=== PATIENT | male | born 1955 | race Caucasian/White ===

== ENCOUNTER 2020-05-27 11:44 | Day surgery (SDC) | payer MEDICARE, OTHER ==
[~2020-05-27] VITALS: Ht 180.3 cm; Wt 124.7 kg
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
--- NOTE | 2020-05-27 13:27 | NUR ---
05/27/20 1327 Eloise Chaves 1314 PT ARRIVED IN PACU SLEEPY WITH NO C/O'S. 1325 SITTING UP IN BED SIPPING ON JUICE. AT BEDSIDE.
--- NOTE | 2020-05-28 17:51 | PATH ---
[facility] [address] [place], [place] [address] Signed SPECIMEN(S): A DUODENAL BIOPSY SPECIMEN(S): B DUODENAL BIOPSY SPECIMEN(S): C ANTRUM/PYLORUS SPECIMEN(S): D PROXIMAL STOMACH SPECIMEN(S): E DISTAL ESOPHAGUS SPECIMEN(S): F MID ESOPHAGUS SPECIMEN SOURCE: A. DUODENAL BIOPSY B. DUODENAL BIOPSY C. ANTRUM/PYLORUS D. PROXIMAL STOMACH E. DISTAL ESOPHAGUS F. MID ESOPHAGUS CLINICAL HISTORY: Abdominal pain. Post-op: Hiatal hernia, mild gastritis. EGD. MICROSCOPIC DESCRIPTION: Histologic sections of all submitted blocks are examined by light microscopy. These findings, together with the gross examination, support the pathologic diagnosis. FINAL PATHOLOGIC DIAGNOSIS: A. Duodenum, biopsy: - Duodenal mucosa with no histopathologic abnormality. - Negative for increased intraepithelial lymphocytes. - Negative for dysplasia or malignancy. B. Duodenum, bulb, biopsy: - Duodenal mucosa with focal gastric surface cell metaplasia. - Negative for Helicobacter organisms on HE stain. - Negative for dysplasia or malignancy. C. Stomach, antrum/pylorus, biopsy: - Antral mucosa with focal mild chronic, inactive gastritis. - Negative for Helicobacter organisms on HE stain. - Negative for dysplasia or malignancy. D. Stomach, proximal, biopsy: - Oxyntic mucosa with no histopathologic abnormality. - Negative for Helicobacter organisms on HE stain. - Negative for dysplasia or malignancy. E. Esophagus, distal, biopsy: PATIENT NAME: ABHISHEK PINTO PATHOLOGY DATE OF : 59 REPORT #: [id number] PHYSICIAN: LUIZ HERNANDEZ PCP: LUKAS YUNG MD REPORT IS CONFIDENTIAL AND NOT TO BE RELEASED WITHOUT AUTHORIZATION [facility] [address] [place], [place] [address] Signed - Squamous mucosa with chronic inflammation and reactive epithelial changes, consistent with reflux esophagitis. - Fragment of oxyntic type glandular mucosa with no histopathologic abnormality. - Negative for intestinal metaplasia, dysplasia, or malignancy. F. Esophagus, mid, biopsy: - Squamous mucosa with no histopathologic abnormality. - Negative for increased intraepithelial eosinophils. - Negative for intestinal metaplasia, dysplasia, or malignancy. NAL:cml:C2NR GROSS DESCRIPTION: Six specimens are received in six containers, labeled "RT." A. The specimen, labeled "RT, duodenum biopsy," is received in formalin and consists of one khan soft tissue fragment that measures 0.3 cm in greatest dimension. The specimen is entirely submitted in cassette (A1). B. The specimen, labeled "RT, duodenum biopsy," is received in formalin and consists of two khan soft tissue fragments that measure 0.1-0.2 cm in greatest dimension. The specimen is entirely submitted in cassette (B1). C. The specimen, labeled "RT, antrum biopsy," is received in formalin and consists of one khan soft tissue fragment that measures 0.2 cm in greatest dimension. The specimen is entirely submitted in cassette (C1). D. The specimen, labeled "RT, proximal stomach biopsy," is received in formalin and consists of two hkan soft tissue fragments that measure 0.2-0.3 cm in greatest dimension. The specimen is entirely submitted in cassette (D1). E. The specimen, labeled "RT, distal esophagus biopsy," is received in formalin and consists of one khan soft tissue fragment that measures 0.3 cm in greatest dimension. The specimen is entirely submitted in cassette (E1). F. The specimen, labeled "RT, mid esophagus biopsy," is received in formalin and consists of one khan soft tissue fragment that measures 0.3 cm in greatest dimension. The specimen is entirely submitted in cassette (F1). JS (under the direct supervision of a pathologist) The Gross Description was prepared using a voice recognition system. The report was reviewed for accuracy; however, sound-alike word errors, addition and/or PATIENT NAME: ABHISHEK PINTO PATHOLOGY DATE OF : 59 REPORT #: [id number] PHYSICIAN: LUIZ PATHOLOGY PCP: LUKAS YUNG MD REPORT IS CONFIDENTIAL AND NOT TO BE RELEASED WITHOUT AUTHORIZATION [facility] [address] [place], [place] [address] Signed deletions may occur. If there is any question about this report, please contact Client Services. PERFORMING LABORATORY: The technical component was performed by [facility], [address] [place] [id number] (Moisture Tester: Maria Esther Mayo MD; CLIA# [id number]). Professional interpretation was performed by [facility], [address] [address] (CLIA# [id number]). Diagnostician: Leslye Solis MD Pathologist Electronically Signed 05/28/2020 Copies: ~ PATIENT NAME: ABHISHEK PINTO PATHOLOGY DATE OF : 59 REPORT #: [id number] PHYSICIAN: LUIZ HERNANDEZ PCP: LUKAS YUNG MD REPORT IS CONFIDENTIAL AND NOT TO BE RELEASED WITHOUT AUTHORIZATION
== END 2020-05-27 13:50 | disposition home or self-care (01) ==
LOC: OPS 11:44 → DS 11:45 → OPS 13:00 → DS 13:00 → OPS 13:50
PROVIDERS: ATTEND Surgery
PROC: 0DB78ZX Excision of Stomach, Pylorus, Via Natural or Artificial Opening Endoscopic, Diagnostic (ICD-10-PCS; 2020-05-27)
PROC: 0DB28ZX Excision of Middle Esophagus, Via Natural or Artificial Opening Endoscopic, Diagnostic (ICD-10-PCS; 2020-05-27)
PROC: 0DB38ZX Excision of Lower Esophagus, Via Natural or Artificial Opening Endoscopic, Diagnostic (ICD-10-PCS; 2020-05-27)
PROC: 0DB98ZX Excision of Duodenum, Via Natural or Artificial Opening Endoscopic, Diagnostic (ICD-10-PCS; principal; 2020-05-27 13:00)
DX: K29.50 Unspecified chronic gastritis without bleeding (principal); K20.90 Esophagitis, unspecified without bleeding; K44.9 Diaphragmatic hernia without obstruction or gangrene; I10 Essential (primary) hypertension; K76.9 Liver disease, unspecified; K21.9 Gastro-esophageal reflux disease without esophagitis; E66.01 Morbid (severe) obesity due to excess calories; Z68.38 Body mass index [BMI] 38.0-38.9, adult
CPT/HCPCS: 99153; G0500; J2250; J3010; J7121

== ENCOUNTER 2020-06-28 08:11 | Emergency (ER) | payer MEDICARE, OTHER ==
[~2020-06-28] VITALS: Ht 182.9 cm; Wt 122.5 kg
== END 2020-06-28 10:18 | disposition home or self-care (01) ==
LOC: ED 08:11
DX: S93.401A Sprain of unspecified ligament of right ankle, initial encounter (principal); S43.401A Unspecified sprain of right shoulder joint, initial encounter; X50.1XXA Overexertion from prolonged static or awkward postures, initial encounter; Z88.8 Allergy status to other drugs, medicaments and biological substances
CPT/HCPCS: 73030; 73610; 99283-25

== ENCOUNTER 2024-05-16 11:35 | Day surgery (SDC) | payer MEDICARE, OTHER ==
[~2024-05-16] VITALS: Ht 175.3 cm; Wt 113.6 kg
[~2024-05-16 11:35] MED LIST: IBLOOD GLUCOSE TEST STRIP 1 EA TEST VI PRN; LACTATED RINGER'S 1,000 ML IV SCH; LIDOCAINE HCL 1% 5 ML SDV INJ ONE; LIPITOR20 MG GT; MIDAZOLAM HCL 5 MG/5 ML VIAL IV PRN; MULTIVITAMIN1 EACH PO; fentaNYL citrate 100 MCG/2 ML VIAL IV PRN
[2024-05-16 12:14] VITALS: BP 124/77
[2024-05-16] MEDS ORDERED: MIDAZOLAM HCL 5 MG/5 ML VIAL ONE (13:50)
[2024-05-16] MEDS ORDERED: fentaNYL citrate 100 MCG/2 ML VIAL ONE (13:50)
--- NOTE | 2024-05-16 14:48 | NUR ---
05/16/24 1448 Eloise Chaves 1441 PT ARRIVED IN PACU SLEEPY. ABD SOFT AND PASSING FLATUS.
[2024-05-16 15:20] VITALS: BP 127/83
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
--- NOTE | 2024-05-18 14:12 | PATH ---
[facility] [address] [place] [place] [address] Signed SPECIMEN(S): A CECUM COLON POLYPS SPECIMEN(S): B CEUM COLON POLYP SPECIMEN SOURCE: A. CECUM COLON POLYPS B. CEUM COLON POLYP CLINICAL HISTORY: History of polyps. Post-suspicious polypoid lesion of cecum/polyp x 2 FINAL PATHOLOGIC DIAGNOSIS: A. Cecum, polypectomies: - Tubular adenomas (multiple fragments) B. Cecum, polypectomy: - Tubulovillous adenoma BRP MICROSCOPIC EXAMINATION: Histologic sections of all submitted blocks are examined by light microscopy. These findings, together with the gross examination, support the pathologic diagnosis. GROSS DESCRIPTION: A. The specimen, labeled and designated "Cooper, R, cecum colon polyps," is received in formalin and consists of three khan soft tissue fragments, ranging from 0.3-0.5 cm. Entirely submitted in (A1). B. The specimen, labeled and designated "Cooper, R, cecum colon polyp," is received in formalin and consists of four khan soft tissue fragments, ranging from 0.2-1.3 cm. The largest polyp is inked blue and sectioned.Entirely submitted in (B1). AB (under the direct supervision of a pathologist) The Gross Description was prepared using a voice recognition system. The report was reviewed for accuracy; however, sound-alike word errors, addition and/or deletions may occur. If there is any question about this report, please contact Client Services. ADDITIONAL NOTES: Immunohistochemical and/or in situ hybridization studies if performed in this case included appropriate positive controls that reacted as expected. This test was developed and its performance characteristics determined by [facility]. It has not been cleared or PATIENT NAME: ABHISHEK PINTO PATHOLOGY DATE OF : 59 REPORT #: [id number] PHYSICIAN: LUIZ HERNANDEZ PCP: LUKAS YUNG MD REPORT IS CONFIDENTIAL AND NOT TO BE RELEASED WITHOUT AUTHORIZATION [address] [place], [place] [address] Signed approved by the U.S. Food and Drug Administration. The FDA has determined that such clearance or approval is not necessary. This test is used for clinical purposes. It should not be regarded as investigational or for research. [facility] is certified under the Clinical Laboratory Improvement Amendments of 1988 (CLIA) as qualified to perform high complexity clinical laboratory testing. PERFORMING LABORATORY: Technical component was performed by [facility], [address] [place] [address] (CLIA# [id number]). Professional interpretation was performed by [facility], [address] [place] [address] (CLIA#: [id number]). Diagnostician: Ronnie Londono MD Pathologist Electronically Signed 05/18/2024 Copies: ~ PATIENT NAME: ABHISHEK PINTO PATHOLOGY DATE OF : 59 REPORT #: [id number] PHYSICIAN: [facility] PCP: LUKAS YUNG MD REPORT IS CONFIDENTIAL AND NOT TO BE RELEASED WITHOUT AUTHORIZATION
--- NOTE | 2024-05-21 07:47 | OR ---
[facility] [address] [place], [place] [address] Signed DATE OF OPERATION: 05/16/2024 SURGEON: William Angulo MD PREOPERATIVE DIAGNOSIS: History of suspicious cecal polypoid lesion October 14, 2023 (partial resection, final pathology tubular adenoma). POSTOPERATIVE DIAGNOSES: 1. Residual polypoid lesion behind the ileocecal valve with continued high suspicion for malignant neoplasia. 2. Polyps of cecum x2. PROCEDURES: 1. Total colonoscopy to cecum with cold snare polypectomy x2 and cold morcellation biopsy of cecal polypoid lesion. 2. Hot snare partial resection of polypoid lesion. ANESTHESIA: Intravenous sedation fentanyl 150 mcg and Versed 10 mg. INDICATION: This 68-year-old white man is a patient of Dr. Naida Villa and underwent colonoscopy by me on October 14, 2023, found to have a cecal lesion which was highly suspicious for malignancy. Multiple biopsies undertaken confirmed only tubular adenoma. As this was discordant to its appearance, I have recommended a repeat colonoscopy. He currently has no bleeding, diarrhea or constipation. He understands the risk of colonoscopy including but not limited to bleeding, infection, and perforation. FINDINGS: The prep was excellent. Complete colonoscopy was undertaken of cecum. There were two separate polypoid lesions of the cecum. Both were excised with cold snare technique. The lesion of concern from before remained rather broad-based and polypoid and behind the ileocecal valve. Several biopsies with cold morcellation technique were undertaken of the lesion and subsequently a partial resection with a hot snare polypectomy technique undertaken. The lesion was certainly easily made to bleed and was very dense and firm in passing the wire through it and therefore still in my opinion has a relatively high chance of actual malignancy. Incomplete resection was accomplished today on the basis of those technical findings. Electronically Signed By: WILLIAM ANGULO MD 05/21/24 0747 PATIENT NAME: ABHISHEK PINTO OPERATIVE REPORT DATE OF : 59 REPORT #: [id number] PHYSICIAN: WILLIAM ANGULO MD PCP: NAIDA VILLA MD REPORT IS CONFIDENTIAL AND NOT TO BE RELEASED WITHOUT AUTHORIZATION [facility] [address] [place], [place] [address] Signed DESCRIPTION OF PROCEDURE: The patient was brought to endoscopy suite and placed in lateral decubitus position, left side down and given intravenous sedation to the point of slurred speech and nystagmus with full cardiopulmonary monitoring. An Olympus video colonoscope was passed in the rectum and manipulated throughout the colon noting some diverticula of the sigmoid. The scope was ultimately advanced to the cecum in the area of prior attempted mucosal lift with a spot endoscopic tattoo was noted without associated neoplasm. There were two separate relatively small 5 mm somewhat flat multilobulated polypoid lesions, both were excised with cold snare technique. Behind the ileocecal valve was a more broadly based full and clearly adenomatoid appearing lesion. This was certainly not pedunculated and certainly was consistent with the suspicious lesion previously noted in October. Several biopsies were taken with cold morcellation technique so as to provide a reasonable assessment of its malignant potential. Using a hot snare polypectomy technique, a portion of the mass was excised at least 1 to 2 cm in size. A hot snare technique was used for this. Biopsy site was somewhat bloody. Quite notably upon drying the wire through the lesion it seemed rather firm and with a much higher possibility of malignancy then might otherwise. That portion of tissue was gathered with a Muro-Net and the scope withdrawn and offloaded. The scope was reintroduced and passed to the cecum without problem showing no sign of untoward bleeding at that site and residual polypoid tissue behind the ileocecal valve. He was taken to recovery room in good condition having suffered no complication. CONCLUDING DIAGNOSIS: Strong suspicion for the polypoid lesion of cecum to be malignant or at minimum dysplastic. It is unlikely in my opinion that this will be safely resected by endoscopic technique. He may require limited cecectomy. If the excised specimen proves to be benign adenomatous tissue or with malignant of course a more full right colectomy. We will await those results before making a recommendation to him. He will return to see me in the office in approximately 2 to 3 weeks. MD FAITH Salazar/ROSEL /[id number] Electronically Signed By: WILLIAM ANGULO MD 05/21/24 0747 PATIENT NAME: ABHISHEK PINTO OPERATIVE REPORT DATE OF : 59 REPORT #: [id number] PHYSICIAN: WILLIAM ANGULO MD PCP: NAIDA VILLA MD REPORT IS CONFIDENTIAL AND NOT TO BE RELEASED WITHOUT AUTHORIZATION [address] [address] Signed cc: Naida Villa MD Copies: ~ Electronically Signed By: WILLIAM ANGULO MD 05/21/24 0747 PATIENT NAME: ABHISHEK PINTO OPERATIVE REPORT DATE OF : 59 REPORT #: [id number] PHYSICIAN: WILLIAM ANGULO MD PCP: NAIDA VILLA MD REPORT IS CONFIDENTIAL AND NOT TO BE RELEASED WITHOUT AUTHORIZATION
== END 2024-05-16 15:30 | disposition home or self-care (01) ==
LOC: DS 11:35 → OPS 11:35
PROVIDERS: ATTEND Surgery
PROC: 0DBC8ZX Excision of Ileocecal Valve, Via Natural or Artificial Opening Endoscopic, Diagnostic (ICD-10-PCS; 2024-05-16)
PROC: 0DBH8ZX Excision of Cecum, Via Natural or Artificial Opening Endoscopic, Diagnostic (ICD-10-PCS; principal; 2024-05-16 13:45)
DX: D12.0 Benign neoplasm of cecum (principal); E66.01 Morbid (severe) obesity due to excess calories; Z68.34 Body mass index [BMI] 34.0-34.9, adult; Z86.39 Personal history of other endocrine, nutritional and metabolic disease; Z86.79 Personal history of other diseases of the circulatory system; Z79.899 Other long term (current) drug therapy; Z88.8 Allergy status to other drugs, medicaments and biological substances
CPT/HCPCS: 88305; 99153; G0500; J2250; J3010; J7121

== ENCOUNTER 2024-06-09 10:55 | Inpatient (IN) | payer MEDICARE, OTHER ==
[~2024-06-09] VITALS: Ht 182.9 cm; Wt 113.6 kg
[~2024-06-09 10:55] MED LIST changes: -IBLOOD GLUCOSE TEST STRIP 1 EA TEST VI PRN; -LACTATED RINGER'S 1,000 ML IV SCH; -LIDOCAINE HCL 1% 5 ML SDV INJ ONE; -MIDAZOLAM HCL 5 MG/5 ML VIAL IV PRN; -fentaNYL citrate 100 MCG/2 ML VIAL IV PRN
[2024-06-12] MEDS ORDERED: OSTERA TABLET1 EACH PO (15:25)
[2024-06-12] MEDS ORDERED: VIT C-ECHINACE1 EACH PO (15:25)
[2024-06-12 15:32] VITALS: BP 132/88
[2024-06-26] MEDS ORDERED: ATORVASTATIN CA20 MG PO (10:18)
[2024-06-26] MEDS ORDERED: AMOX TR-K CLV1 EAC1 PO (11:43)
[2024-06-29] MEDS ORDERED: LACTATED RINGER'S 1,000 ML IV SCH (05:00)
[2024-06-29] MEDS ORDERED: HEParin SOD (PORCINE) 5,000 UNIT/ML SDV SUB-Q SCH (07:00)
[2024-06-29] MEDS ORDERED: CEFAZOLIN SODIUM 2 GM/20 ML SYR IV SCH (07:00)
[2024-06-29] MEDS ORDERED: metroNIDAZOLE/SODIUM CHLORIDE 500 MG/100 ML PIGGYBACK IV SCH (07:00)
[2024-06-29] MEDS ORDERED: LIDOCAINE HCL 1% 5 ML SDV INJ ONE (07:00)
[2024-06-29] MEDS ORDERED: IBLOOD GLUCOSE TEST STRIP 1 EA TEST VI PRN (07:00)
[2024-08-18] VITALS (9 sets, daily range): BP systolic 100–153; BP diastolic 60–89
[2024-08-18] MEDS ORDERED: LACTATED RINGER'S 1,000 ML IV SCH ×2 (05:00→13:15)
[2024-08-18] MEDS ORDERED: LAXATIVE5 M1 PO (06:46)
[2024-08-18] MEDS ORDERED: MIRALAX17 GM PO (06:47)
[2024-08-18] MEDS ORDERED: IBLOOD GLUCOSE TEST STRIP 1 EA TEST VI PRN (07:00)
[2024-08-18] MEDS ORDERED: CEFAZOLIN SODIUM 2 GM/20 ML SYR IV SCH (07:00)
[2024-08-18] MEDS ORDERED: HEParin SOD (PORCINE) 5,000 UNIT/ML SDV SUB-Q SCH (07:00)
[2024-08-18] MEDS ORDERED: LIDOCAINE HCL 1% 5 ML SDV INJ ONE (07:00)
[2024-08-18] MEDS ORDERED: metroNIDAZOLE/SODIUM CHLORIDE 500 MG/100 ML PIGGYBACK IV SCH ×2 (07:00→14:00)
[2024-08-18] MEDS ORDERED: KETOROLAC TROMETHAMINE 30 MG/ML VIAL ONE (08:05)
[2024-08-18] MEDS ORDERED: DEXAMETHASONE SOD PHOS 4 MG/ML VIAL ONE ×2 (08:05→12:26)
[2024-08-18] MEDS ORDERED: ROCURONIUM BROMIDE 50 MG/5 ML SYR ONE ×3 (08:05→12:09)
[2024-08-18] MEDS ORDERED: propofoL 200 MG/20 ML VIAL ONE (08:05)
[2024-08-18] MEDS ORDERED: dexmedeTOMIDine HCl 200 MCG/2 ML VIAL ONE (08:05)
[2024-08-18] MEDS ORDERED: ondansetron HCL 4 MG/2 ML VIAL ONE (08:05)
[2024-08-18] MEDS ORDERED: LIDOCAINE HCL 2% 5 ML SDV ONE (08:14)
[2024-08-18] MEDS ORDERED: MAGNESIUM SULFATE 1 GM/2 ML VIAL ONE (08:19)
[2024-08-18] MEDS ORDERED: KETAMINE in NS 50 MG/5 ML SYR ONE (09:45)
[2024-08-18] MEDS ORDERED: GLYCOPYRROLATE 1 MG/5 ML MDV ONE (09:45)
[2024-08-18] MEDS ORDERED: ePHEDrine sulfate 50 MG/ML AMP ONE (09:56)
[2024-08-18] MEDS ORDERED: ACETAMINOPHEN 1,000 MG/100 ML VIAL ONE (10:08)
[2024-08-18] MEDS ORDERED: PHENYLEPHRINE HCL 10 MG/ML VIAL ONE (10:11)
[2024-08-18] MEDS ORDERED: HYDROmorphone HCL 2 MG/ML VIAL ONE (12:18)
[2024-08-18] MEDS ORDERED: SODIUM CHLORIDE 0.9% 20 ML IV ONE ×2 (12:29→12:30)
[2024-08-18] MEDS ORDERED: FAMOTIDINE 20 MG/ 2 ML VIAL IV SCH (13:11)
[2024-08-18] MEDS ORDERED: LIDOCAINE 2% VISCOUS 6 ML SYR TOP ONE (13:15)
[2024-08-18] MEDS ORDERED: ondansetron HCL 4 MG/2 ML VIAL IV PRN ×2 (13:15→13:30)
[2024-08-18] MEDS ORDERED: KETOROLAC TROMETHAMINE 30 MG/ML VIAL IV PRN (13:15)
[2024-08-18] MEDS ORDERED: ACETAMINOPHEN 1,000 MG/100 ML VIAL IV PRN (13:15)
--- NOTE | 2024-08-18 13:21 | NUR ---
08/18/24 1321 Kassandra,Yarely 1302 PT ARRIVED TO PACU ON 6L VIA MASK, JAW THRUST AND CHIN LIFT USED OFF AND ON TO MAINTAIN AIRWAY. LARGE AMOUNT OF SNORING NOTED. HOB INCREASED. 1311 PT OPENED HIS EYES TO TACTILE STIMULI. RN REORIENTING PT TO PACU AND PT EASILY FALLS BACK TO SLEEP. PT DIAPHORETIC AND COOL WASH CLOTH USED ON FOREHEAD. 1318 PT WAKES TO TACTILE STIMULI AND DEEP BREATHING ENCOURAGED. 1321 PT WOKE AND O2 MASK REMOVED.
[2024-08-18] MEDS ORDERED: fentaNYL citrate 50 MCG/ML SDV IV PRN (13:30)
[2024-08-18] MEDS ORDERED: droPERidol 5 MG/2 ML VIAL IV PRN (13:30)
[2024-08-18] MEDS ORDERED: MIDAZOLAM HCL 2 MG/2 ML VIAL IV PRN (13:30)
[2024-08-18] MEDS ORDERED: PROCHLORPERAZINE EDISYLATE 10 MG/2 ML VIAL IV PRN (13:30)
[2024-08-18] MEDS ORDERED: HYDROmorphone HCL 1 MG/ML SYR IV PRN (13:30)
[2024-08-18] MEDS ORDERED: NALOXONE HCL 0.4 MG SYR IV PRN (13:30)
[2024-08-18] MEDS ORDERED: CEFAZOLIN SODIUM 3 GM/30 ML SYR IV SCH (14:00)
--- NOTE | 2024-08-18 14:15 | NUR ---
PATIENT ARRIVES TO FLOOR IN HOSPITAL BED, REPORT RECEIVED FROM CARBON PAPER MACHINE OPERATORLAUREN. PATIENT INITIALLY ON CPAP WITH ROOM AIR, TRANSITIONS TO ROOM AIR WITH WAKING. PATIENT COMPLAINS OF NAUSEA AND IS DIAPHORETIC WITH ACTIVE RETCHING. PRN ANTI-EMETIC MEDICATION ADMINISTERED. PATIENT HAS TWO VISITORS ARRIVE. THIS RN AND RAVI LEE REMAIN IN ROOM WITH PATIENT AT THIS TIME.
[2024-08-18] MEDS ORDERED: SEVOFLURANE 250 ML BTL INH ONE (15:11)
--- NOTE | 2024-08-18 15:27 | NUR ---
ADMISSION COMPLETE. PATIENT HAS COMPLETED RETCHING AT THIS TIME AND IS RESTING IN BED WITH HOB ELEVATED, EYES CLOSED, RR EVEN AND UNLABORED ON ROOM AIR. SCDs IN PLACE, CPOX AT BEDSIDE. PATIENT REMAINS MILDLY DIAPHORETIC. DENIES PAIN. STAT LOCK PLACED TO PATIENT'S RIGHT THIGH TO SECURE MAS CATH. MAS CATH DRAINING FREELY TO BEDSIDE. PATIENT VISITORS HAVE LEFT. PATIENT RESTING IN BED, BED IN LOWEST POSITION, BED ALARM ON, CALL LIGHT AND PERSONAL BELONGINGS IN REACH.
--- NOTE | 2024-08-18 16:09 | NUR ---
PATIENT'S SPO2 SUSTAINS<88% ON ROOM AIR WHEN PATIENT IS RESTING WITH EYES CLOSED. ADRIANNA FROM RESPIRATORY THERAPY PRESENT AND REQUESTS 2LNC AT ALL TIMES UNTIL TOMORROW. PATIENT PLACED ON 2LNC, PATIENT'S SPO2 SUSTAINS>92%. PATIENT STATES "I FEEL GOOD." NO REQUESTS, DENIES PAIN OR NAUSEA AT THIS TIME. CALL LIGHT AND PERSONAL BELONGINGS IN REACH.
--- NOTE | 2024-08-18 16:50 | NUR ---
MD ANGULO NOTIFIED OF PATIENT'S BG OF 222. GIVES VERBAL ORDER FOR LOW DOSE SSI. ORDER PLACED.
[2024-08-18] MEDS ORDERED: IBLOOD GLUCOSE TEST STRIP 1 EA TEST XX PRN (17:00)
[2024-08-18] MEDS ORDERED: GLUCAGON,HUMAN RECOMBINANT 1 MG/ML VIAL SUB-Q PRN (17:00)
[2024-08-18] MEDS ORDERED: DEXTROSE 5% 1,000 ML IV PRN (17:00)
[2024-08-18] MEDS ORDERED: DEXTROSE 50% 50 ML SYR IV PRN ×2 (17:00)
[2024-08-18] MEDS ORDERED: INSULIN LISPRO 100 UNIT/ML ML SUB-Q SCH (17:00)
[2024-08-18] MEDS ORDERED: IBLOOD GLUCOSE TEST STRIP 1 EA TEST VI SCH (17:00)
--- NOTE | 2024-08-18 17:23 | NUR ---
MED REC COMPLETE
--- NOTE | 2024-08-18 17:42 | NUR ---
PATIENT HAS SMALL AMOUNT OF TEA AND EQUAL AMOUNT OF EMESIS. PATIENT IS BELCHING REGULARLY. PATIENT TOLERATES ROLLING IN BED TO PLACE FRESH CHUX AND APPLY NEW GOWN. PATIENT CONTINUES BELCHING BUT DENIES FLATULENCE OF YET. DRESSING REMAIN DRY AND INTACT, RED SHADOWING UNCHANGED FROM ARRIVAL TO FLOOR. FINAL SET OF POST-OP VITALS OBTAINED AND RECORDED. PATIENT REQUESTS PAIN MEDICATION FOR ABDOMINAL PAIN RATED 5/10, PRN PAIN MEDICATION ADMINISTERED. PATIENT REPORTS BELCHING IS HELPING HIS NAUSEA. PATIENT HAS VISITOR WITH HIS SERVICE DOG ARRIVE AT THIS TIME. VISITOR AND DOG REMAIN IN ROOM, PATIENT HAS NO OTHER REQUESTS, CALL LIGHT AND PERSONAL BELONGINGS IN REACH.
--- NOTE | 2024-08-18 18:20 | NUR ---
PATIENT IS AWAKE AND ALERT WATCHING TELEVISION WITH HIS DOG IN HIS LAP. PATIENT HAS EATEN A JELLO CUP AND DRANK HALF A CUP OF TEA AND REPORTS NO NAUSEA AT THIS TIME. PATIENT IS REQUESTING SOME BEEF BROTH. CALL LIGHT AND PERSONAL BELONGINGS IN REACH.
--- NOTE | 2024-08-18 18:25 | NUR ---
PATIENT IS IN BED AT THIS TIME, SUIT MAKER CHARTED VITALS AND INTAKE, NO OUTPUT YET. BROTHER AND SERVICE DOG IN ROOM WITH HIM, CALL LIGHT WITH IN REACH AND NOTHING ELSE NEEDED AT THIS TIME.
--- NOTE | 2024-08-18 19:10 | NUR ---
REPORT RECEIVED FROM CECE HIGGINS. pt RESTING IN THE BED. MIDLINE INCISION INTACT WITH MINIMAL SHADOWING. pt DENIES ANY OTHER NEEDS AT THIS TIME. CALL LIGHT WITHIN REACH.
--- NOTE | 2024-08-18 20:27 | NUR ---
ABHISHEK (AKA: BELEM) IS CURRENTLY ON A 2L NC BECAUSE THE CPAP CAUSE NASEAU, SUBSEQUENTLY VOMITING DUE TO THE PRESSURE. BELEM WAS ABLE TO DEMONSTRATE PROFICIENCY WITH THE CORNET LEVEL 5 W/O INCREASED S/S OF RESPIRATORY DISTRESS. RT TOOK BELEM'S SERVICE DOG (JOSSELINE) OUTSIDE TO GO POTTY.
--- NOTE | 2024-08-18 21:20 | NUR ---
ASSESSMENT AND VITAL SIGNS DONE. pt C/O NAUSEA. PRN ANTINAUSEA MEDS ADMINISTERED. SCHEDULED MEDS ADMINISTERED. IV ASSESSED, WNL. IV ABX INFUSING PER ORDER. pt MID LINE INCISION HAS SHADOWING AND LAP SITES INTACT WITH MINIMAL SHADOWING. NO OTHER NEEDS AT THIS TIME. CALL LIGHT WITHIN REACH. BOWEL TONES ARE ACTIVE.
--- NOTE | 2024-08-18 22:30 | NUR ---
pt CALL AND REQUESTED PRN PAIN MEDS. PRN OFIRMEV ADMINISTERED. pt DENIES ANY OTHER NEEDS AT THIS TIME. CALL LIGHT WITHIN REACH.
[2024-08-19] VITALS (11 sets, daily range): BP systolic 96–148; BP diastolic 49–76
--- NOTE | 2024-08-19 00:08 | NUR ---
IN RM TO CHANGE IVF BAG. pt DENIES ANY OTHER NEEDS AT THIS TIME. CALL LIGHT WITHIN REACH. IVF INFUSING PER ORDER.
--- NOTE | 2024-08-19 00:57 | NUR ---
pt RESTING IN THE BED WITH EYES CLOSED. RR EVEN AND UNLABORED. CALL LIGHT WITHIN REACH.
--- NOTE | 2024-08-19 01:50 | NUR ---
VITAL SIGNS DONE. pt RESTING ON HIS SIDE. pt DENIES ANY OTHER NEEDS AT THIS TIME. CALL LIGHT WITHIN REACH.
--- NOTE | 2024-08-19 02:05 | NUR ---
CORPORATE LICENSED BROKER OBTAINED VITALS AND I&O. WHILE IN ROOM PT SERVICE DOG NIPPED AT THIS CNAS FEET. PRIMARY AND RISK ASSESSMENT CONSULTANT NOTIFED. PT STATES NO NEEDS AT THIS TIME. CALL LIGHT WITHIN REACH.
--- NOTE | 2024-08-19 04:06 | NUR ---
IN RM TO DO ASSESSMENT AND HELP pt MOVE IN THE BED. pt ROLLED OVER TO THE RIGHT SIDE. pt DENIES ANY OTHER NEEDS AT THIS TIME. CALL LIGHT WITHIN REACH.
[2024-08-19 05:11] LABS: BASOPHILS 0.1 % (0.2-1.2); EOSINOPHILS 0 % (0.8-7.0); HEMATOCRIT 40.7 % (40.1-51.0); HEMOGLOBIN 13.2 g/dL (13.7-17.5); LYMPHOCYTES 5.2 % (21.8-53.1); MCH 28.8 PG (25.7-32.2); MCHC 32.4 g/dL (32.3-36.5); MCV 88.7 fL (79.0-92.2); MONOCYTES 6.2 % (5.3-12.2); PLATELET COUNT 317 K/uL (163-337); RBC 4.59 M/uL (4.63-6.08)
[2024-08-19 05:22] LABS: ANION GAP 14.4 (7-21); BUN/CREATININE RATIO 9.9 (6.0-28.6); CALCIUM 7.9 mg/dL (8.5-10.1); CREATININE, SERUM 1.11 mg/dL (0.70-1.30); POTASSIUM 4.4 mmol/L (3.5-5.1)
--- NOTE | 2024-08-19 05:50 | NUR ---
IN RM TO DO VITAL SIGNS. IV ABX ADMINISTERED PER ORDER. pt DENIES ANY PAIN AT THIS TIME. CALL LIGHT WITHIN REACH.
--- NOTE | 2024-08-19 07:20 | NUR ---
REPORT RECEIVED FROM RNOALDO PERRY. PATIENT AGREEABLE TO GETTING UP. PATIENT OUT OF BED AND AMBULATES TO RECLINER WITH LINE AND TUBE MANAGEMENT ONLY. PATIENT IS ON 2LNC WITH CPOX AT CHAIRSIDE AND MAS CATH DRAINING FREELY. WASHCLOTH PROVIDED FOR HIS FACE, ASSISTED TO CHANGE INTO FRESH GOWN. NO FURTHER REQUESTS, CALL LIGHT AND PERSONAL BELONGINGS IN REACH.
--- NOTE | 2024-08-19 08:09 | NUR ---
MEDICATION ADMINISTERED, SEE MAY. ASSESSMENT COMPLETE. PATIENT REMAINS UP IN RECLINER. MAS CATH DRAINING FREELY TO CHAIRSIDE, SMALL AMOUNT OF URINE LEAKING AROUND MAS SITE. BOWEL TONES ARE ACTIVE IN ALL QUADRANTS, PATIENT DENIES PAIN OR NAUSEA AT THIS TIME. PATIENT REPORTS CONTINUED BELCHING BUT DENIES FLATULENCE. MIDLINE SURGICAL ADHESIVE DRESSING IS DRY AND INTACT WITH RED SHADOWING TO CENTRE AND BOTTOM OF DRESSING. PATIENT HAS TWO LAP SITES WITH STERI-STRIPS IN PLACE, BOTH DRY AND INTACT WITH A SCANT AMOUNT OF DRIED SS DRAINAGE NOTED TO BOTH. BREAKFAST TRAY ARRIVES. PATIENT REPORTS HE IS FEELING GOOD AND LOOKING FORWARD TO GETTING OUT OF THE HOSPITAL AT SOME POINT. NO REQUESTS, CALL LIGHT AND PERSONAL BELONGINGS IN REACH.
--- NOTE | 2024-08-19 09:10 | NUR ---
PATIENT IS SITTING UP IN THEIR CHAIR FOR BREAKFAST. SECURITY ENTERED TO TAKE SERVICE DOG OUTSIDE. BLOOD SUGAR CHECKED AND RONALDO ZHAO NOTIFIED.
--- NOTE | 2024-08-19 10:26 | NUR ---
PATIENT HAS VISITOR PRESENT AT THIS TIME.
--- NOTE | 2024-08-19 12:10 | NUR ---
MD ANGULO IN TO ASSESS AND SEE PATIENT, ALL QUESTIONS AND CONCERNS ANSWERED AND ADDRESSED. DR ANGULO INFORMS PATIENT THAT HIS DOG CANNOT STAY ANY LONGER AND MUST LEAVE. PATIENT VERBALIZES UNDERSTANDING. PATIENT'S DOG IS RESTING IN PATIENT'S LAP THROUGHOUT INTERACTION. PATIENT HAS NO REQUESTS, CALL LIGHT AND PERSONAL BELONGINGS IN REACH.
[2024-08-19] MEDS ORDERED: ACETAMINOPHEN 500 MG TAB PO PRN (12:30)
--- NOTE | 2024-08-19 13:15 | NUR ---
MAS CATH D/C. PATIENT TOLERATES WELL AND REPORTS HE FEELS HE CAN VOID IMMEDIATELY. PATIENT DISCONNECTED FROM CPOX AND SALINE LOCKED, AMBULATES WITH SUPERVISION ONLY TO RESTROOM AND ATTEMPTS TO VOID BUT IS UNSUCCESSFUL. PATIENT REPORTS HE WOULD LIKE TO WALK. PATIENT AMBULATES TWO LAPS IN THE HALLS WITH SUPERVISION AND ONE LAP INDEPENDENTLY. PATIENT RETURNS TO ROOM AND ATTEMPTS TO VOID AGAIN AND VOIDS A VERY SMALL AMOUNT, APPROXIMATELY 10ML. PATIENT IS STEADY ON HIS FEET THROUGHOUT AND IS NAVIGATING WITH HIS IV POLE SUCCESSFULLY. PATIENT CLEARED TO BE INDEPENDENT AT THIS TIME WITH INSTRUCTION TO CALL IF HE FEELS AT ALL UNSTEADY OR UNSURE. PATIENT VERBALIZES UNDERSTANDING. PATIENT RETURNS TO BED, DOG IMMEDIATELY BACK INTO BED WITH HIM. CALL LIGHT AND PERSONAL BELONGINGS IN REACH.
--- NOTE | 2024-08-19 15:06 | NUR ---
MEDICATION ADMINISTERED, SEE MAR. PATIENT IS RESTING IN BED WITH DOG IN HIS LAP. PATIENT REPORTING ABDOMINAL PAIN RATED 4/10, PRN PAIN MEDICATION ADMINISTERED, REFUSES ICE PACK. MIDLINE AND LAPROSCOPIC DRESSINGS REMAIN UNCHANGED FROM THIS AM WITH DRIED DRAINAGE, OTHERWISE DRY AND INTACT. BOWEL TONES ACTIVE IN ALL QUADRANTS. PATIENT DENIES NAUSEA OR CRAMPING AT THIS TIME. HAS NOT VOIDED YET. NO REQUESTS. CALL LIGHT AND PERSONAL BELONGINGS IN REACH.
--- NOTE | 2024-08-19 18:46 | NUR ---
PATIENT'S FRIEND ARRIVES AND LEAVES WITH HIS DOG. PATIENT IS RESTING IN BED, APPEARS IN GOOD SPIRITS. NEW BAG OF IV FLUIDS STARTED. PATIENT DENIES PAIN AND NAUSEA, REPORTS HE IS TOLERATING SUPPER WELL. NO REQUESTS, CALL LIGHT AND PERSONAL BELONGINGS IN REACH.
--- NOTE | 2024-08-19 19:39 | NUR ---
Received report. Pt is alert and oreinted. Updated white board. Call light within reach. Pt has no further questoins or needs at this time.
--- NOTE | 2024-08-19 23:14 | NUR ---
PT ASSESSMENT COMPLETE. MEDICATIONS GIVEN PER MAY. PT RATES ABDOMINAL PAIN /, REPORTS FLATUCENCE, ABDOMINAL DRESSING INTACT, OLD DRAINAGE NOTED. BOWEL TONES ACTIVE AND ABDOMEN SOFT.DENIES NAUSEA. 2L/NC AND CPOX IN PLACE FOR SLEEP. SCDS IN PLACE. PT DENIES QUESTIONS OR CONCERNS. CALL LIGHT WITHIN REACH.
[2024-08-20] VITALS (11 sets, daily range): BP systolic 142–187; BP diastolic 80–104
--- NOTE | 2024-08-20 00:31 | NUR ---
CALL LIGHT ANSWERED. PT UP TO VOID. PT REPORTS INCREASED ABDOMINAL PAIN WITH STANDING, RATES AT 3/10. PT DECLINES NEED FOR MEDICATION AT THIS TIME. PT WILL CALL IF NEEDED. PT HAS NO FURTHER NEEDS OR CONCERNS. CALL LIGHT WITHIN REACH.
--- NOTE | 2024-08-20 02:29 | NUR ---
PT RESTING ON HIS SIDE WITH EYES CLOSED. CPOX 94% ON 2L/NC. HEART RATE 50'S.
--- NOTE | 2024-08-20 03:49 | NUR ---
IV PUMP ALARMING, NEW BAG LR STARTED. PT UP TO VOID. PT HAS NO FURTHER NEEDS AT THIS TIME.
--- NOTE | 2024-08-20 06:45 | NUR ---
CALL LIGHT ANSWERED FOR PT VOMITING. PT HAD CHUGGED 500ML OF CLEAR FLUIDS AND BECAME NAUSEATED. PT VOMITED X2. PT REPORTED FEELING LIGHTHEADED, BLOOD SUGAR CHECKED, BLOOD SUGAR 148. PT REPORTED FEELING LIGHTHEADED AFTER VOMITTING. PT ENCOURAGED TO STAY IN BED AND TAKE A FEW DEEP BREATHS. PT DENIED PAIN. PT FELT THE NEED TO VOID. PT REPORTED FEELING LESS LIGHTHEADED AND AMBULATED TO BATHROOM. PT BACK TO BED, DENIED NAUSEA AFTER ZOFRAN ADMIN PER MAY. CALL LIGHT WITH IN REACH. PT HAD NO FURTHER NEEDS AT THIS TIME. .
--- NOTE | 2024-08-20 07:25 | NUR ---
MORNING REPORT RECIEVED FROM RONALDO WEEKS. PT SITTING UP IN BED AT THIS TIME AWAKE AND ALERT, PT HAD A FEW EPISODES OF EMESIS THIS MORNING AND RECIEVED MEDICATION ZOFRAN, PT IS FEELING BETTER BUT STILL SLIGHTLY NAUSEATED. PT HAS NO OTHER CONCERNS AT THIS TIME CALL LIGHT IN REACH.
--- NOTE | 2024-08-20 07:58 | NUR ---
PT IN BED , ALERT AND AWAKE SITTING UP, ROOM CLEANED AND VITALS TAKEN PT REPORTED FEELING DOWN, HIS SERVICE DOG HAD TO LEAVE CALL LIGHT WITHIN REACH, WHITE BOARD CHANGED
--- NOTE | 2024-08-20 08:45 | NUR ---
PT SITTING UP IN BED AT THIS TIME, PT AMBULATED TO RESTROOM SBA AND TOLERATED WELL. PT REPORTS NO PAIN AND DENIES FEELING DIZZY AT THIS TIME. PT RETURNED TO BED AND HAS CALL LIGHT IN REACH.
--- NOTE | 2024-08-20 10:40 | NUR ---
PT REPORTED NO DIZZINESS WHILE WALKING OR IN CHAIR, PT FEELS A LITTLE ANXIOUS, MISSING SERVICE DOG CALL LIGHT WITHIN REACH
--- NOTE | 2024-08-20 10:41 | NUR ---
PT AMBULATING THE HALLS WITH THIS RN. PT TOLERATED WELL WITH NO ASSISTANCE NEEDED. PT WALKED 3 LAPS AROUND THE UNIT AND THEN RETURNED TO BED WITH OUT ANY ISSUES. PT HAS CALL LIGHT IN REACH AT THIS TIME.
--- NOTE | 2024-08-20 11:55 | NUR ---
PT HAD VISITORS THIS MORNING, PT IS CURRENTLY SITTING UP IN THE CHAIR AT THIS TIME. PT DENIES PAIN AT THIS TIME, AND HAS YET TO HAVE A SECOND BM TODAY BUT IS PASSING GAS. PT HAS CALL LIGHT IN REACH.
--- NOTE | 2024-08-20 13:00 | NUR ---
PT SITTING UP IN BED AT THIS TIME, PT DENIES NEEDS AT THIS TIME AND HAS CALL LIGHT IN REACH.
--- NOTE | 2024-08-20 14:30 | OR ---
[facility] [address], [place] [address] Signed DATE OF OPERATION: 08/18/2024 SURGEON: William Angulo MD PREOPERATIVE DIAGNOSES: 1. Persistent ENDOSCOPICALLY unresectable multiple polypoid changes of cecum. 2. Morbid obesity. 3. History of midline incisional hernia repair with mesh. POSTOPERATIVE DIAGNOSES: 1. Persistent ENDOSCOPICALLY unresectable multiple polypoid changes of cecum. 2. Morbid obesity. 3. History of midline incisional hernia repair with mesh. PROCEDURE: Laparoscopic assisted right colectomy with extracorporeal anastomosis. ANESTHESIA: General endotracheal; Tania Hui CRNA and postoperative bilateral TAP block. INDICATION: This 68-year-old obese white man is a patient of Naida Villa. He underwent screening colonoscopy where was found to have multiple polypoid changes of the cecum in the region of the ileocecal valve. Initial appearance was suggestive though not diagnostic of malignancy. There was no ulceration. Multiple polypoid excisions were undertaken. Pathology was found to be benign tubular adenoma. He underwent repeat evaluation, which showed persistent polypoid lesion which was not fully resectable by endoscopic means including mucosal lift, snare polypectomy, morcellation, and so forth. Mindful of the uncertainty of the diagnosis and recommendation for complete extirpation of the polypoid tissue. Consideration was made for a limited colectomy to fully resect the endoscopically unresectable polypoid tissue. The risk of a planned laparoscopic-assisted cecectomy include, but are not limited to bleeding, infection, need for more formal open operation, anastomotic failure, need for other indicated procedures. Understanding this, he wished to proceed. FINDINGS: He had a prior surgery in the region of the umbilicus with fibrosis related to implantation of mesh. Additionally, he had omental adhesions to the area. Despite these factors, laparoscopic mobilization of the right colon was undertaken with good mobility of the colon. The liver appeared grossly normal. Small bowel including Electronically Signed By: WILLIAM ANGULO MD 08/20/24 1430 PATIENT NAME: ABHISHEK PINTO OPERATIVE REPORT DATE OF : 59 REPORT #: [id number] PHYSICIAN: WILLIAM ANGULO MD PCP: NAIDA VILLA MD REPORT IS CONFIDENTIAL AND NOT TO BE RELEASED WITHOUT AUTHORIZATION [facility] [address], [place] [address] Signed terminal ileum was normal as well. Unfortunately explantation of the colon fully from the abdominal cavity to allow for extracorporeal manipulation and anastomosis did require extension of the infraumbilical incision more than usual. Resection included approximately 4 inches of the cecum and similar amount of ileum with a end-to-side hand-sewn anastomosis that was accomplished safely. Opening of the specimen did show the polypoid tissue which seemed less in amount previously, but was definitely present and in a most inopportune position for endoscopic treatment near the ileocecal valve itself. DESCRIPTION OF PROCEDURE: The patient was brought to the operating room, given a general endotracheal anesthetic. A Bcek catheter was placed. He had undergone a full bowel prep. The abdomen was prepared with a chlorhexidine solution and draped sterilely. Preoperative IV antibiotics were given as well. After satisfactory anesthesia and abdominal wall preparation and draping, an infraumbilical incision was made. Previous fibrosis from an umbilical hernia repair was noted. An open Ru cannula technique was required to allow for pneumoperitoneum. Laparoscope was placed into the abdominal cavity showing no sign of ascites or carcinomatosis. Liver was normal. Considered amount of fat was noted including omental adhesions to the umbilical area. An epigastric 12 mm port was placed and subsequently a 5 mm right lower quadrant port. The patient was placed in the Trendelenburg position left side down. This allowed for good visualization of the cecum and terminal ileum. Endoscopic dye was easily noted in the cecum. Cecum was elevated and the white line of Toldt laterally was taken down with blunt electrocautery dissection ultimately to the hepatic flexure itself. Further mobility of the right mesocolon was undertaken the Gerota's fascia and mobilizing the colon well. A Kali clamp was applied to the specimen to deliver it through the area of the umbilicus. Pneumoperitoneum was relieved and the incision was extended. Attempts at withdrawal of the cecum through this were unsuccessful due to the fatty nature of the mesentery of the ileum and colon, but also due to the abdominal wall pannus and fibrosis and omental adhesions in the area. Various maneuvers were used to more fully liberate the already mobilized right colon through the infraumbilical incision, but ultimately the incision had to be extended inferiorly and so was cephalad to not unlike an open right colectomy, though not totally typical of either. This did allow ultimately removal of the cecum, the ileum and the offending lesions within the cecum. The very inflamed and fatty mesentery of the bowel loops including the right colon and so forth was carefully managed applying clips as necessary, particularly in the region of the mesoappendix which had some oozing of blood. Ultimately, the entire cecum and portion of the right colon could be explanted through the incision as was the terminal ileum. Palpation of the cecum did not show any bulky mass and there was no adenopathy that was suspicious for malignancy. Mesentery corresponding to the cecum was scored with electrocautery as was a portion of the ileum. Application of hemostats to the vascular Electronically Signed By: WILLIAM ANGULO MD 08/20/24 5852 PATIENT NAME: ABHISHEK PINTO OPERATIVE REPORT DATE OF : 59 REPORT #: [id number] PHYSICIAN: WILLIAM ANGULO MD PCP: NAIDA VILLA MD REPORT IS CONFIDENTIAL AND NOT TO BE RELEASED WITHOUT AUTHORIZATION [facility] [address] [place], [place] [address] Signed pedicles was undertaken securing them with 0 silk ties. An 80 mm Endo-LILLIE stapling device was used to transect the right colon approximately 1/3 the distance from the cecum, having not interrupted the ileocolic artery proper. Similarly the terminal ileum was transected approximately 4 inches proximal to the ileocecal valve. The staple line of the cecum was oversewn with interrupted 3-0 silk suture. An end-to-side ileo right colostomy was performed in a two-layer technique of interrupted 3-0 silk suture for the serosal layer and interrupted 3-0 Vicryl for the mucosal layer. The mesenteric defect was oversewn with interrupted 3-0 silk suture, though friability of the mesentery was quite notable. Irrigation was undertaken and the intraabdominal contents manipulated more fully. Plan for replacement of the remaining right colon and ilium to the abdominal cavity. After copious irrigation was completed, plans were made for closure. The midline fascia was reapproximated with running bidirectional 0 Prolene suture on the basis of his prior Prolene mesh repair in lieu of PDS absorbable suture. Irrigation was undertaken in subcutaneous space. Hemostasis assured with electrocautery and skin closed with a running subcuticular 3-0 Vicryl. Trocars in the epigastric and right lower quadrant had long been removed and the skin was closed with interrupted 3-0 Vicryl. The patient then underwent bilateral TAP blocks for postoperative analgesic benefit. He was taken to recovery room after application of Acticoat dressing and Steri-Strips in good condition. Blood loss was estimated 100 mL. Sponge, needle and instrument counts reported as correct x3. MD FAITH Salazar/ROSEL /[id number] cc: Naida Villa MD Copies: ~ Electronically Signed By: WILLIAM ANGULO MD 08/20/24 1430 PATIENT NAME: ABHISHEK PINTO OPERATIVE REPORT DATE OF : 59 REPORT #: [id number] PHYSICIAN: WILLIAM ANGULO MD PCP: NAIDA VILLA MD REPORT IS CONFIDENTIAL AND NOT TO BE RELEASED WITHOUT AUTHORIZATION
--- NOTE | 2024-08-20 15:10 | NUR ---
PT SITTING UP IN BED, PT HAS NO CURRENT CONCERNS AT THIS TIME. PT DOES STATE " HE HAS MILD ABD PAIN THAT ONLY HAPPENS FOR A SECOND AND STOPS". PT THINKS THEY MAYBE NEEDING TO HAVE A BM SOON. PT DENIES NEED FOR MEDICATION AT THIS TIME. PT CALL LIGHT IN REACH.
--- NOTE | 2024-08-20 18:17 | NUR ---
PT USED CALL LIGHT TO USE RESTROOM. PT HAS NO OTHER CONCERNS AT THIS TIME AND HAS CALL LIGHT IN REACH.
--- NOTE | 2024-08-20 20:03 | NUR ---
RECIEVED REPORT. PT RESTING ON LEFT SIDE WITH EYES CLOSED. UPDATED WHITE BOARD. CALL LIGHT WITHIN REACH.
--- NOTE | 2024-08-20 22:39 | NUR ---
IN TO ASSESS PT. PT RATES HIS PAIN 1/10, BANDAGE INTACT, NO ACTIVE BLEEDING. PT REPORTS HE HAS FLATULENCE, NO BM TODAY. PT DOES REPORT LIGHTHEADNESS AND NAUSEA AFER ADMINISTERING ANCEF. PT GIVEN ZOFRAN PER MAR. PT BOWEL SOUNDS ARE ACTIVE. PT REASSESSED FOR NAUSEA WHICH IS IMPROVING. PT HAS NO FURTHER NEEDS AT THIS TIME. CALL LIGHT WITH IN REACH.
--- NOTE | 2024-08-20 23:36 | NUR ---
IN TO ROOM TO CHECK IV METRONIDAZOLE. PT RESTING BUT AWAKES. PT DENIES PAIN, DENIES NAUSEA. PT HAS NO FURTHER NEEDS AT THIS TIME. CALL LIGHT WITH IN REACH.
[2024-08-21] VITALS (7 sets, daily range): BP systolic 147–158; BP diastolic 82–87
--- NOTE | 2024-08-21 01:07 | NUR ---
IN TO CHECK ON PT, CHECKED O2 SAT 93% ON ROOM AIR WHILE PT IS RESTING WITH EYES CLOSED. PT THEN UP TO BATHROOM. PT BACK IN BED. PT HAS NO FURTHER NEEDS AT THIS TIME. CALL LIGHT WITH IN REACH.
--- NOTE | 2024-08-21 03:00 | NUR ---
IN TO CHECK ON PT. PT RESTING EYES CLOSED. PT HAS O2 SAT 94% ON RA. CALL LIGHT WITH IN REACH.
--- NOTE | 2024-08-21 03:49 | NUR ---
ANSWERED CALL LIGHT. PT UP TO BATHROOM. ONCE HE WAS BACK IN BED COMPLETED ASSESSMENT. PT HAS NO FURTHER NEEDS. CALL LIGHT WITH IN REACH.
--- NOTE | 2024-08-21 05:39 | NUR ---
ANSWERED CALL LIGHT. PT UP TO BATHROOM. VITALS COMPLETED. PT DENIES PAIN, DENIES NAUSEA. PT HAS NO FURTHER NEEDS AT THIS TIME. CALL LIGHT WITH IN REACH.
--- NOTE | 2024-08-21 07:25 | NUR ---
MORNING REPORT RECIEVED FROM RONALDO WEEKS. PT LAYING DOWN IN BED WITH EYES CLOSED CHEST RISE EQUAL BILAT. PT EASILY AROUSABLE AND WAKES TO VOICE, PT HAS NO CURRENT CONCERNS AT THIS TIME. PT STATES " HIS STOMACH/MIDLINE FEELS NORMAL AT THIS TIME". PT HAS CALL LIGHT IN REACH AT THIS TIME.
--- NOTE | 2024-08-21 09:05 | NUR ---
PT SITTING UP IN CHAIR, PT DENIES PAIN AT THIS TIME, PT IS STILL EMOTIONAL ABOUT HIS DOG BUT DOES RESPOND WELL TO VERBAL COMFORT. PT IS GOING TO TAKE A SHOWER AND IS HOPEFUL TO BE DC'D TODAY. PT HAS NO CONCERNS AND HAS CALL LIGHT IN REACH.
--- NOTE | 2024-08-21 09:27 | NUR ---
RETRO UR CLINICAL REVIEW: 2 MN FOR VERSALUS- PER GMAT INSTRUCTOR MEETS INPT FOR COLECTOMY WITH NEED FOR PAIN CONTROL AND MONITORING MEDICARE INPT 08/18/24 @ 1312 ORDER MATCHES REG DISCHARGE TO HOME WHEN STABLE. ANTICIPATE 12-24 HRS REMAINING UNTIL DC
--- NOTE | 2024-08-21 11:21 | NUR ---
PT SITTING UP IN BED, PT TOLERATING REGULAR DIET WELL, PT HAS NO CONCERNS AT THIS TIME AND IS EXCITED TO BE GOING HOME TODAY. PT HAS CALL LIGHT IN REACH AT THIS TIME.
--- NOTE | 2024-08-21 11:27 | NUR ---
PERSONAL HEALTH INFORMATION REVIEWED. PATIENT LIVES IN AN APARTMENT WITH ABOUT 5 STEPS TO GET INTO. DENIES ANY DIFFCULTY DOING THEM. PATIENT DOES NOT USE ANY DME. HE HAS A BIG DOG THAT HELPS HIM DO STAIRS. PATIENT HAS A BROTHER FOR PERSON OF CONTACT. HE STATES "I HAVE FOUND A FAMILY IN [place] OF SUPPORT AND MY DRAGLINE OPERATOR HELPER IS EVEN CALLING ME NOW." HE STATES THE [facility] TO COME PICK HIM UP AT TIME OF DISCHARGE AND IF NOT HE HAS FRIENDS WHEN MEDICALLY CLEARED. DENIES DIFFCULTY PAYING UTLITIES OR OBTAINING FOOD. NO FUTHER CM NEEDS AT THIS TIME.
--- NOTE | 2024-08-21 11:40 | NUR ---
PT SURGICAL DRESSING REMOVED PER VERBAL ORDER FROM MD ANGULO, PT TOLERATED DRESSING REMOVAL WELL, STERI STRIPS LEFT IN PLACE. PT HAS NO CURRENT NEEDS AT THIS TIME CALL LIGHT IN REACH.
[2024-08-21] MEDS ORDERED: ACETAMINOPHEN500 MG PO (13:19)
[2024-08-21] MEDS ORDERED: ONDANSETRON4 MG/2 M1 IV (13:19)
[2024-08-21] MEDS ORDERED: MOTRIN IB200 MG PO (13:21)
[2024-08-21] MEDS ORDERED: HYDROCODON-ACE1 EA11 PO (13:21)
[2024-08-21] MEDS ORDERED: TYLENOL EXTRA500 MG PO (13:22)
[2024-08-21] MEDS ORDERED: ONDANSETRON ODT4 MG SL (13:35)
[2024-08-21] MEDS ORDERED: HYDROCODON-ACE1 EA10 PO (14:59)
--- NOTE | 2024-08-23 14:57 | PATH ---
[facility] [address] [place], [place] [address] Signed SPECIMEN(S): A ILEUM AND CECUM SPECIMEN SOURCE: A. ILEUM AND CECUM CLINICAL HISTORY: Cecal tubular adenoma, not fully resectable with colonoscopy FINAL PATHOLOGIC DIAGNOSIS: Ileum and cecum: - Tubular adenoma involving the cecum, negative for high grade dysplasia or evidence of malignancy. - Tubular adenoma is widely free of the surgical margins. 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 - Incidental pericolonic lymph nodes (three) negative for atypical features or evidence of malignancy. JVR:clv MICROSCOPIC EXAMINATION: Histologic sections of all submitted blocks are examined by light microscopy. These findings, together with the gross examination, support the pathologic diagnosis. GROSS DESCRIPTION: The specimen, labeled and designated "Cooper, R., ileum and cecum," is received in formalin and consists of a previously opened hemicolectomy comprised of a 8.6 cm in length by 3.1 cm in circumference segment of small bowel and a 6.8 cm in length by 12.6 cm in circumference cecum. There is moderate amount of attached yellow lobulated adipose. The attached appendix measures 5.2 x 0.6 x 0.6 cm. There is a 2.5 x 1.7 x 0.8 cm polypoid mass involving the mucosa of the cecum, overlying the appendiceal orifice, 7 cm away from the ileocecal valve 6 cm away from the colonic margin, and greater than 8 cm away from the ileal margin. Grossly, the mass appears confined to the mucosa and comes within 4.8 cm away from the radial margin. The background mucosa of the colon and terminal ileum is unremarkable without additional polyps or discoloration. The serosa of the colon, small bowel, and appendix is smooth and unremarkable. No appendiceal lesions or intraluminal mucin is seen. A single lymph node PATIENT NAME: ABHISHEK PINTO PATHOLOGY DATE OF : 59 REPORT #: [id number] PHYSICIAN: LUIZ HERNANDEZ PCP: LUKAS YUNG MD REPORT IS CONFIDENTIAL AND NOT TO BE RELEASED WITHOUT AUTHORIZATION [facility] [address] [place], [place] [address] Signed candidate is located within the pericolonic soft tissue. Cattle Driver sections are submitted as follows: Cassette Summary: (A1) ileal margin (A2) cecal margin (A3) radial margin (A4) ileocecal valve (A5-A6) polypoid mass (A7) appendiceal orifice and distal tip, bisected (A8) appendix (A9) lymph node candidate with vessel junctions (A10) vessel junction AA (under the direct supervision of a pathologist) The Gross Description was prepared using a voice recognition system. The report was reviewed for accuracy; however, sound-alike word errors, addition and/or deletions may occur. If there is any question about this report, please contact Client Services. PERFORMING LABORATORY: Technical component was performed by [facility], [address] [place] [id number] (CLIA# [id number]). Professional interpretation was performed by [email or web address] - [facility], [address] [place] [id number] (CLIA#: [id number]). Diagnostician: Brant Shabazz MD Pathologist Electronically Signed 08/23/2024 Copies: ~ PATIENT NAME: ABHISHEK PINTO PATHOLOGY DATE OF : 59 REPORT #: [id number] PHYSICIAN: LUIZ PATHOLOGY PCP: LUKAS YUNG MD REPORT IS CONFIDENTIAL AND NOT TO BE RELEASED WITHOUT AUTHORIZATION
--- NOTE | 2024-08-24 11:32 | DS ---
[facility] [address], [place] [address] Signed ADMISSION DATE: 08/18/2024 DISCHARGE DATE: 08/21/2024 REASON FOR ADMISSION: This obese 68-year-old white man is a patient of Dr. Naida Villa. He underwent screening colonoscopy where he was found to have a complex of polyps in the cecum not completely resectable by endoscopic means initially. Indeed, there was some appearance of possible malignancy based on clinical appearance. A tubulovillous adenoma was noted. Repeat colonoscopy was performed, which showed similar findings and inability to resect the polypoid material given its extent and location. Biopsies at that time confirmed the persistence of benign tubulovillous adenoma. On the basis of these findings, I have recommended a limited cecal resection. A laparoscopic approach is offered, though an open procedure might be necessary. He is admitted for that purpose. PERTINENT PHYSICAL EXAM: GENERAL: Shows an obese white man, who looks to be in no distress. He has a full chopra. CHEST: Clear. HEART: Regular. ABDOMEN: Obese, but soft. EXTREMITIES: Show no clubbing, cyanosis, or edema. HOSPITAL COURSE: On August 18, 2024, he went underwent laparoscopic assisted right partial colectomy with extracorporeal anastomosis. Notable were findings of a previous incisional hernia repair with mesh rather extensive omental adhesions to the abdominal wall and the tattoo had marked the area well demonstrated the cecum itself. Mobilization of the right colon was undertaken, but a larger incision than usual was required to deliver fully the cecum and ilium outside the abdominal cavity given his thick abdominal wall pannus, omental adhesions and so forth. An end-to-side ileal right colostomy was performed following resection of a portion of terminal ileum and portion of right colon including the cecum and the appendix. His postoperative course was rather unremarkable. Clear liquid diet was started the night of surgery and advanced to full liquids and ultimately a low-fiber diet. He was discharged to home on the 3rd postoperative day, tolerating regular diet, having bowel function and doing well. DISCHARGE MEDICATIONS: Will include Tylenol 1000 mg p.o. q.6 hours p.r.n. pain, Motrin 600 mg p.o. q.6 hours Electronically Signed By: WILLIAM ANGULO MD 08/24/24 1132 PATIENT NAME: ABHISHEK PINTO DISCHARGE SUMMARY DATE OF : 59 REPORT #: [id number] PHYSICIAN: WILLIAM ANGULO MD PCP: NAIDA VILLA MD REPORT IS CONFIDENTIAL AND NOT TO BE RELEASED WITHOUT AUTHORIZATION [facility] [address], [place] [address] Signed p.r.n. pain, Percocet 7.5/325 one p.o. q.6 hours p.r.n. pain #6, and resumption of his usual medications. FOLLOWUP PLAN: He is to return to see me in approximately four weeks. He will maintain a low-fiber diet for the first two weeks. He will keep Steri-Strips on the wound and avoid lifting more than 20 pounds for the next four weeks. DISCHARGE DIAGNOSES: 1. 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 2. Morbid obesity. 3. History of umbilical hernia repair with mesh. 4. Diabetes mellitus. MD FAITH Salazar/MODL /[id number] cc: Naida Villa MD Copies: ~ Electronically Signed By: WILLIAM ANGULO MD 08/24/24 1132 PATIENT NAME: ABHISHEK PINTOLEY DISCHARGE SUMMARY DATE OF : 59 REPORT #: [id number] PHYSICIAN: WILLIAM ANGULO MD PCP: NAIDA VILLA MD REPORT IS CONFIDENTIAL AND NOT TO BE RELEASED WITHOUT AUTHORIZATION
== END 2024-08-21 15:25 | disposition home or self-care (01) | DRG 331 ==
LOC: MS 06-16 07:30 → DSVR 08-18 05:50 → MS 08-18 07:30
PROVIDERS: ADMIT Surgery; ATTEND Surgery
PROC: 0DBH4ZZ Excision of Cecum, Percutaneous Endoscopic Approach (ICD-10-PCS; principal; 2024-08-18 09:00)
PROC: 0DBF4ZZ Excision of Right Large Intestine, Percutaneous Endoscopic Approach (ICD-10-PCS; principal; 2024-08-18 09:00)
DX: D12.0 Benign neoplasm of cecum (principal); E66.01 Morbid (severe) obesity due to excess calories; E11.9 Type 2 diabetes mellitus without complications; K21.9 Gastro-esophageal reflux disease without esophagitis; I10 Essential (primary) hypertension; K42.9 Umbilical hernia without obstruction or gangrene; Z91.018 Allergy to other foods; Z87.19 Personal history of other diseases of the digestive system; Z86.0100 Personal history of colon polyps, unspecified; Z88.8 Allergy status to other drugs, medicaments and biological substances; Z68.34 Body mass index [BMI] 34.0-34.9, adult
CPT/HCPCS: 00840; 36415; 76942; 80048; 85025; 88309; 94660; 94667; 94668; 94762; 94799; A9270; J0131; J0690; J1100; J1171; J1644; J1815; J1885; J2003; J2371; J2405; J2704; J3475; J3490; J7121

== ENCOUNTER 2024-06-26 09:39 | Emergency (ER) | payer MEDICARE, OTHER ==
[~2024-06-26] VITALS: Ht 175.3 cm; Wt 112.0 kg
[~2024-06-26 09:39] MED LIST changes: +OSTERA TABLET1 EACH PO; +VIT C-ECHINACE1 EACH PO
[2024-06-26] MEDS ORDERED: ATORVASTATIN CA20 MG PO (10:18)
[2024-06-26] MEDS ORDERED: AMOX TR-K CLV1 EAC1 PO (11:43)
[2024-06-26 12:00] VITALS: BP 129/64
== END 2024-06-26 12:02 | disposition home or self-care (01) ==
LOC: ED 09:39
DX: K61.1 Rectal abscess (principal); I10 Essential (primary) hypertension; E11.9 Type 2 diabetes mellitus without complications; Z88.9 Allergy status to unspecified drugs, medicaments and biological substances; Z91.018 Allergy to other foods
CPT/HCPCS: 46040; 99283-25